=== PATIENT | male | born 1945 | race Caucasian/White ===

== ENCOUNTER 2017-03-05 13:02 | Emergency (ER) | payer OTHER, BC ==
[~2017-03-05] VITALS: Ht 175.3 cm; Wt 82.6 kg
[~2017-03-05 13:02] MED LIST: NOHOMEMEDS
[2017-03-05 15:43] VITALS: BP 114/82
== END 2017-03-05 15:43 | disposition home or self-care (01) ==
LOC: EME 13:02
DX: S60.222A Contusion of left hand, initial encounter (principal); V49.88XA Car occupant (driver) (passenger) injured in other specified transport accidents, initial encounter; Y92.410 Unspecified street and highway as the place of occurrence of the external cause; M25.572 Pain in left ankle and joints of left foot; R07.9 Chest pain, unspecified
CPT/HCPCS: 71020; 73130; 99281; 99283

== ENCOUNTER 2018-01-03 11:57 | Emergency (ER) | payer OTHER, BC ==
[~2018-01-03] VITALS: Ht 175.3 cm; Wt 86.9 kg
[2018-01-03 12:39] LABS: HEMATOCRIT 41.3 % (38.0-50.0); HEMOGLOBIN 14.2 G/DL (12.5-16.6); MCH 29.8 PG (29.0-34.0); MCHC 34.4 G/DL (30.0-36.0); MCV 86.8 FL (86-99); PLATELET COUNT 173 K/uL (156-360); RBC DIS.WIDTH-CV 12.9 % (11.8-14.6); RBC DIS.WIDTH-SD 40.5 % (39-53); RED BLOOD COUNT 4.76 M/uL (4.00-5.50); WHITE BLOOD COUNT 6.2 K/uL (4.1-10.2)
[2018-01-03 12:48] LABS: CHLORIDE 106 mEq/L (99-109); POTASSIUM 3.8 mEq/L (3.7-5.4)
[2018-01-03 12:49] LABS: SODIUM 141 mEq/L (136-147)
[2018-01-03 12:50] LABS: GLUCOSE 169 mg/dL (70-99)
[2018-01-03 12:54] LABS: CREATININE 0.8 mg/dL (0.6-1.3); GFR ESTIMATE (CALCULATED) > 59 mL/min/ (58.99-99999)
[2018-01-03 12:55] LABS: UREA NITROGEN (BUN) 14 mg/dL (9-23)
[2018-01-03 13:00] LABS: TROP-I INTERPRETATION NEGATIVE; TROPONIN-I < 0.01 ng/mL (0.0-0.30)
[2018-01-03 15:52] LABS: TROP-I INTERPRETATION NEGATIVE; TROPONIN-I < 0.01 ng/mL (0.0-0.30)
[2018-01-03 16:15] VITALS: BP 136/74
== END 2018-01-03 16:18 | disposition home or self-care (01) ==
LOC: EME 11:57
PROVIDERS: Nurse Practitioner Family
DX: S29.011A Strain of muscle and tendon of front wall of thorax, initial encounter (principal)
CPT/HCPCS: 71046; 80048; 84484; 85027; 93005; 99281; 99284